=== PATIENT | female | born 1985 ===

== ENCOUNTER 2017-11-10 13:30 | Emergency (ER) | payer OTHER ==
[2017-11-10 13:43] VITALS: BP 127/75; PULSE 86; RESP 20; TEMP 97.9; O2SAT 98
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
--- NOTE | 2017-11-10 15:34 | RAD ---
PROCEDURE: Cervical Spine Radiographs. Will or HISTORY: Pain. COMPARISON: None. FINDINGS: BONES: Reversal of the anatomic lordosis with kyphosis. Degree: Moderate DISC SPACES: Degenerative changes limited to C5-6 primarily anterior osteophyte formation SOFT TISSUES: Normal. No prevertebral soft tissue swelling. OTHER FINDINGS: None. IMPRESSION: Cervical kyphosis, no acute findings identified.
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
== END 2017-11-10 15:58 | disposition home or self-care (01) ==
LOC: H.ER 13:30
DX: M54.2 Cervicalgia (principal); V43.62XA Car passenger injured in collision with other type car in traffic accident, initial encounter; Y92.410 Unspecified street and highway as the place of occurrence of the external cause

== ENCOUNTER 2018-05-28 22:35 | Emergency (ER) | payer MEDICAID, OTHER ==
[2018-05-28 22:47] VITALS: RESP 16; O2SAT 98
[2018-05-28] MEDS ORDERED: Tdap Vaccine 0.5 ml Vial (10-64 yrs) IM ONE (22:51)
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
[2018-05-29 00:32] VITALS: BP 128/78; PULSE 88; TEMP 98.2
--- NOTE | 2018-05-29 09:00 | CT ---
Date of service: 05/28/2018 PROCEDURE: CT MAXILLOFACIAL BONES WITHOUT CONTRAST HISTORY: r/o mandibular fx COMPARISON: None available. TECHNIQUE: Contiguous axial CT images of the maxillofacial bones were obtained. Coronal and sagittal reformats were generated. Radiation dose: Total exam DLP = 586.18 mGy-cm. This CT exam was performed using one or more of the following dose reduction techniques: Automated exposure control, adjustment of the mA and/or kV according to patient size, and/or use of iterative reconstruction technique. FINDINGS: NASAL BONES: No acute fracture. ORBITS: No acute fracture. The globes are symmetric and normal in appearance. PARANASAL SINUSES/ MASTOIDS: There is mild mucosal thickening in the anterior ethmoids air cells and left maxillary sinus. The remaining included paranasal sinuses are clear. MAXILLA: No acute maxillofacial fracture. MANDIBLE/ TEMPOROMANDIBULAR JOINTS: No acute fracture or dislocation.. SKULL BASE: Unremarkable. TEMPORAL BONES: Middle ears and mastoid grossly unremarkable. OTHER FINDINGS: There is mild soft tissue swelling and presumable soft tissue hematoma overlying the left mandible. IMPRESSION: No acute fracture or dislocation. A preliminary report was provided by [employer].
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
== END 2018-05-29 00:31 | disposition home or self-care (01) ==
LOC: H.ER 22:35
DX: S01.511A Laceration without foreign body of lip, initial encounter (principal); S00.83XA Contusion of other part of head, initial encounter; Y04.0XXA Assault by unarmed brawl or fight, initial encounter; Y92.89 Other specified places as the place of occurrence of the external cause